=== PATIENT | male | born 1985 | race Caucasian/White ===

== ENCOUNTER 2017-04-08 19:22 | Emergency (ER) | payer MEDICAID ==
--- NOTE | 2017-04-08 21:35 | C.PDOC ---
History Of Present Illness 31 y/o male c/o pain and redness to the left index finger for a few days. Patient noticed swelling to the area today which prompted the visit. 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 Denies fever, open wounds, or any other complaints. Time Seen by Provider: 04/08/17 20:52 Chief Complaint (Nursing): Finger,Hand,&Wrist History Per: Patient History/Exam Limitations: no limitations Onset/Duration Of Symptoms: Days Current Symptoms Are (Timing): Still Present Quality: "Pain" Severity: Mild Recent travel outside of the [place]: No Additional History Per: Patient Past Medical History Reviewed: Historical Data, Nursing Documentation, Vital Signs Vital Signs: Last Vital Signs Temp 98.1 F 04/08/17 21:55 Pulse 79 04/08/17 21:55 Resp 17 04/08/17 21:55 BP 119/80 04/08/17 21:55 Pulse Ox 96 04/09/17 00:05 Family History: States: Unknown Family Hx - Social History Hx Alcohol Use: Yes Hx Substance Use: No - Immunization History Hx Tetanus Toxoid Vaccination: No Hx Influenza Vaccination: No Hx Pneumococcal Vaccination: No Review Of Systems Constitutional: Negative for: Fever Musculoskeletal: Positive for: Hand Pain (Pain and redness to the left index finger). Negative for: Other (No open wounds) Physical Exam - Physical Exam Appears: Non-toxic, No Acute Distress Skin: Warm, Dry Extremity: Normal ROM (Both hands), Capillary Refill (<2secs), Other (Erythema at the PIP of the left second finger with localized swelling. No fluctuant mass. No open wounds. No proximal or distal streaking.) Pulses: Left Radial: Normal, Right Radial: Normal Neurological/Psych: Oriented x3, Normal Motor, Normal Sensation ED Course And Treatment O2 Sat by Pulse Oximetry: 96 (RA) Pulse Ox Interpretation: Normal Progress Note: Plans: Reassess. Patient was in no acute distress at this time. Patient is currently afebrile. Patient was instructed to follow up with PMD for further evaluations and to return if symptoms worsens. Disposition Counseled Patient/Family Regarding: Diagnosis, Need For Followup, Rx Given - Disposition Referrals: Shaik Parsons MD [Staff Provider] - Disposition: HOME/ ROUTINE Disposition Time: 21:30 Condition: STABLE Additional Instructions: Apply warm compress to area Follow up with PMD in 2 days for reeval Take meds as directed Return to ER if symptoms worsen Prescriptions: Cephalexin [cephalexin] 500 mg PO QID #28 cap Mupirocin 2% Ointment [Bactroban Ointment] 1 appl TP BID #1 tube Sulfamethoxazole/Trimethoprim [Bactrim DS 800 mg-160 mg] 1 tab PO BID #14 tab Instructions: Cellulitis (ED) Forms: [facility] (Yi) - Clinical Impression Clinical Impression: Cellulitis of finger of left hand - Scribe Statement The provider has reviewed the documentation as recorded by the Scribe Alexandr reynolds All medical record entries made by the Zaneibe were at my direction and personally dictated by me. I have reviewed the chart and agree that the record accurately reflects my personal performance of the history, physical exam, medical decision making, and the department course for this patient. I have also personally directed, reviewed, and agree with the discharge instructions and disposition.
[2017-04-08 21:56] VITALS: BP 119/80; PULSE 79; RESP 17; TEMP 98.1
[2017-04-09 00:06] VITALS: O2SAT 96
== END 2017-04-08 21:54 | disposition home or self-care (01) ==
LOC: C.ER 19:22
DX: L03.012 Cellulitis of left finger (principal)

== ENCOUNTER 2018-01-06 15:37 | Emergency (ER) | payer MEDICAID ==
--- NOTE | 2018-01-06 16:23 | C.PDOC ---
History Of Present Illness 32 year old male presents to the ED for evaluation of a rash to his right forearm which began 4-5 days ago. Patient states he was evaluated by his PMD two days ago and was prescribed a cream (unsure of name). Since then, the area has been mildly swollen and red, which has prompted this visit. Patient notes he works in the [employer]. He denies fever, chills, shortness of breath, cough. Time Seen by Provider: 01/06/18 15:51 Chief Complaint (Nursing): Abnormal Skin Integrity History Per: Patient History/Exam Limitations: no limitations Onset/Duration Of Symptoms: Days (4-5) Current Symptoms Are (Timing): Still Present Location Of Injury: Right: Forearm Quality Of Symptoms: Swollen Additional History Per: Patient Past Medical History Reviewed: Historical Data, Nursing Documentation, Vital Signs Vital Signs: Last Vital Signs Temp 98.2 F 01/06/18 16:47 Pulse 61 01/06/18 16:47 Resp 18 01/06/18 16:47 BP 105/67 01/06/18 16:47 Pulse Ox 98 01/06/18 18:13 - Medical History PMH: No Chronic Diseases Surgical History: No Surg Hx Family History: States: Unknown Family Hx - Social History Hx Alcohol Use: Yes Hx Substance Use: No - Immunization History Hx Tetanus Toxoid Vaccination: No Hx Influenza Vaccination: No Hx Pneumococcal Vaccination: No Review Of Systems Constitutional: Negative for: Fever, Chills Respiratory: Negative for: Cough, Shortness of Breath Skin: Positive for: Rash (right forearm ) Physical Exam - Physical Exam Appears: Non-toxic, No Acute Distress Skin: Other (right distal forearm, posterior aspect: 2cm lesion with surrouding weeping and central erythema. 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 There is surroundning erythema, will treat with PO Keflex in case of bacterial superinfection. Explained to patient he needs to keep area clean and dry, and that symptoms can persist for 3-6 weeks. Disposition Counseled Patient/Family Regarding: Diagnosis, Need For Followup, Rx Given - Disposition Referrals: Shaik Parsons MD [Staff Provider] - Disposition: HOME/ ROUTINE Disposition Time: 16:35 Condition: STABLE Additional Instructions: FOLLOW UP WITH YOUR DOCTOR IN 1-2 DAYS KEEP AREA DRY AND COVERED UP USE ANTIBIOTICS UNTIL FINISHED WOUND MAY LAST 3-6 WEEKS Prescriptions: Cephalexin [Keflex] 500 mg PO BID #14 capsule Forms: [facility] (Faroese), General Discharge Instructions Print Language: MONGOLIAN - Clinical Impression Clinical Impression: Orf virus disease, Parapoxvirus infection, Cellulitis of right arm - Scribe Statement The provider has reviewed the documentation as recorded by the Scribe (Alexia Marshall) Provider Attestation: All medical record entries made by the Scribe were at my direction and personally dictated by me. I have reviewed the chart and agree that the record accurately reflects my personal performance of the history, physical exam, medical decision making, and the department course for this patient. I have also personally directed, reviewed, and agree with the discharge instructions and disposition.
[2018-01-06 16:48] VITALS: BP 105/67; PULSE 61; RESP 18; TEMP 98.2
[2018-01-06 18:08] VITALS: O2SAT 98
== END 2018-01-06 17:00 | disposition home or self-care (01) ==
LOC: C.ER 15:37
DX: B08.02 Orf virus disease (principal); B08.6 Parapoxvirus infections; L03.113 Cellulitis of right upper limb